=== PATIENT | male | born 1960 | race Caucasian/White ===

== ENCOUNTER 2019-02-04 06:59 | Day surgery (SDC) | payer OTHER ==
[~2019-02-04] VITALS: Ht 180.3 cm; Wt 113.4 kg
[~2019-02-04 06:59] MED LIST: ATOR1TAB19 PO; CHAN1PAK13 PO; NS 1,000 ML IV ONE
[2019-02-04] MEDS ORDERED: LIDOCAINE 2% INJ 100 MG/5 ML SDV (FOR ANES.) As Ordered ONE (07:08)
[2019-02-04] MEDS ORDERED: PROPOFOL 200 MG/20 ML VIAL As Ordered ONE ×3 (07:08→08:59)
--- NOTE | 2019-02-04 09:10 | ROOR ---
Patient Name: Arben Nicole Procedure Date: 02/04/2019 8:12 AM Date of : 1960 Age: 58 Room: [facility] Gender: Male Note Status: Finalized Procedure: Total Colonoscopy to Cecum + Cold + Hot Snare Polypectomy + Hemoclips Indications: Screening for colorectal malignant neoplasm Providers: Hesham Merritt MD Referring MD: Indiana Garcia NP Requesting Provider: Medicines: Monitored Anesthesia Care Complications: No immediate complications. Procedure: Pre-Anesthesia Assessment: - The heart rate, respiratory rate, oxygen saturations, blood pressure, adequacy of pulmonary ventilation, and response to care were monitored throughout the procedure. The Colonoscope was introduced through the anus and advanced to the cecum, identified by appendiceal orifice and ileocecal valve. The colonoscopy was performed without difficulty. The patient tolerated the procedure well. The quality of the bowel preparation was excellent. Findings: The perianal and digital rectal examinations were normal. Non-bleeding internal hemorrhoids were found during retroflexion. The hemorrhoids were Grade I (internal hemorrhoids that do not prolapse). Scattered small-mouthed diverticula were found in the recto-sigmoid colon, sigmoid colon and descending colon. A medium polyp was found at 10 cm proximal to the anus. The polyp was semi-pedunculated. The polyp was removed with a hot snare. Resection and retrieval were complete. To prevent bleeding after the polypectomy, one hemostatic clip was successfully placed (MR conditional). There was no bleeding at the end of the procedure. A large polyp was found at 20 cm proximal to the anus. The polyp was semi-pedunculated. The polyp was removed with a hot snare. Resection and retrieval were complete. To prevent bleeding after the polypectomy, one hemostatic clip was successfully placed (MR conditional). There was no bleeding at the end of the procedure. Two sessile polyps were found at 30 cm proximal to the anus. The polyps were medium in size. These polyps were removed with a cold snare. Resection and retrieval were complete. To prevent bleeding after the polypectomy, one hemostatic clip was successfully placed (MR conditional). There was no bleeding at the end of the procedure. A small polyp was found at 50 cm proximal to the anus. The polyp was sessile. The polyp was removed with a cold snare. Resection and retrieval were complete. Two sessile polyps were found at 50 cm proximal to the anus. The polyps were medium in size. These polyps were removed with a hot snare. Resection and retrieval were complete. To prevent bleeding after the polypectomy, one hemostatic clip was successfully placed (MR conditional). There was no bleeding at the end of the procedure. A medium polyp was found in the transverse colon. The polyp was sessile. The polyp was removed with a cold snare. Resection and retrieval were complete. Two semi-pedunculated polyps were found in the hepatic flexure. The polyps were medium in size. These polyps were removed with a hot snare. Resection and retrieval were complete. To prevent bleeding after the polypectomy, one hemostatic clip was successfully placed (MR conditional). There was no bleeding at the end of the procedure. A small polyp was found in the ascending colon. The polyp was sessile. The polyp was removed with a hot snare. Resection and retrieval were complete. To prevent bleeding after the polypectomy, one hemostatic clip was successfully placed (MR conditional). There was no bleeding at the end of the procedure. The exam was otherwise without abnormality on direct and retroflexion views. Impression: - Non-bleeding internal hemorrhoids. - Diverticulosis in the recto-sigmoid colon, in the sigmoid colon and in the descending colon. - One medium polyp at 10 cm proximal to the anus, removed with a hot snare. Resected and retrieved. Clip (MR conditional) was placed. - One large polyp at 20 cm proximal to the anus, removed with a hot snare. Resected and retrieved. Clip (MR conditional) was placed. - Two medium polyps at 30 cm proximal to the anus, removed with a cold snare. Resected and retrieved. Clip (MR conditional) was placed. - One small polyp at 50 cm proximal to the anus, removed with a cold snare. Resected and retrieved. - Two medium polyps at 50 cm proximal to the anus, removed with a hot snare. Resected and retrieved. Clip (MR conditional) was placed. - One medium polyp in the transverse colon, removed with a cold snare. Resected and retrieved. - Two medium polyps at the hepatic flexure, removed with a hot snare. Resected and retrieved. Clip (MR conditional) was placed. - One small polyp in the ascending colon, removed with a hot snare. Resected and retrieved. Clip (MR conditional) was placed. - The examination was otherwise normal on direct and retroflexion views. Recommendation: - Patient has a contact number available for emergencies. The signs and symptoms of potential delayed complications were discussed with the patient. Return to normal activities tomorrow. Written discharge instructions were provided to the patient. - High fiber diet. - Discharge patient to home. - Continue present medications. - Await pathology results. - Telephone GI clinic for pathology results in 1 week. - Repeat colonoscopy for surveillance based on pathology results. - Return to referring physician. - The findings and recommendations were discussed with the patient's family. Hesham Merritt MD Hesham Merritt MD 02/04/2019 9:10:19 AM Electronically signed by Hesham Merritt MD Number of Addenda: 0 Note Initiated On: 02/04/2019 8:12 AM Estimated Blood Loss: Estimated blood loss: none.
[2019-02-04 09:25] VITALS: BP 150/96
== END 2019-02-04 09:34 | disposition home or self-care (01) ==
LOC: M OPP 06:59
PROVIDERS: ATTEND Internal Medicine Gastroenterology
DX: D12.2 Benign neoplasm of ascending colon (principal); D12.3 Benign neoplasm of transverse colon; D12.6 Benign neoplasm of colon, unspecified; K64.0 First degree hemorrhoids; K57.30 Diverticulosis of large intestine without perforation or abscess without bleeding; Z12.11 Encounter for screening for malignant neoplasm of colon

== ENCOUNTER 2019-05-20 09:05 | Day surgery (SDC) | payer OTHER ==
[~2019-05-20] VITALS: Ht 172.7 cm; Wt 110.2 kg
[~2019-05-20 09:05] MED LIST changes: +LIDOCAINE 2% INJ 100 MG/5 ML SDV (FOR ANES.) As Ordered ONE; +PROPOFOL 200 MG/20 ML VIAL As Ordered ONE
--- NOTE | 2019-05-20 10:42 | ROOR ---
Patient Name: Arben Nicole Procedure Date: 05/20/2019 10:14 AM Date of : 1960 Age: 58 Room: [facility] Gender: Male Note Status: Finalized Procedure: Total Colonoscopy to Cecum + Cold Snare Polypectomy + Hemoclips Indications: High risk colon cancer surveillance: Personal history of colonic polyps, Incidental - Follow-up for history of colon polyps of uncertain behavior Providers: Hesham Merritt MD Referring MD: LILLIAM Reynolds Requesting Provider: Medicines: Monitored Anesthesia Care Complications: No immediate complications. Procedure: Pre-Anesthesia Assessment: - The heart rate, respiratory rate, oxygen saturations, blood pressure, adequacy of pulmonary ventilation, and response to care were monitored throughout the procedure. The Colonoscope was introduced through the anus and advanced to the cecum, identified by appendiceal orifice and ileocecal valve. The colonoscopy was performed without difficulty. The patient tolerated the procedure well. The quality of the bowel preparation was excellent. Findings: The perianal and digital rectal examinations were normal. Non-bleeding internal hemorrhoids were found during retroflexion. The hemorrhoids were small and Grade I (internal hemorrhoids that do not prolapse). Scattered small-mouthed diverticula were found in the recto-sigmoid colon, sigmoid colon and descending colon. A medium polyp was found in the splenic flexure. The polyp was sessile. The polyp was removed with a cold snare. Resection and retrieval were complete. To prevent bleeding after the polypectomy, two hemostatic clips were successfully placed (MR conditional). There was no bleeding at the end of the procedure. A small polyp was found in the transverse colon. The polyp was sessile. The polyp was removed with a jumbo cold forceps. Resection and retrieval were complete. The exam was otherwise without abnormality on direct and retroflexion views. Impression: - Non-bleeding internal hemorrhoids. - Diverticulosis in the recto-sigmoid colon, in the sigmoid colon and in the descending colon. - One medium polyp at the splenic flexure, removed with a cold snare. Resected and retrieved. Clips (MR conditional) were placed. - One small polyp in the transverse colon, removed with a jumbo cold forceps. Resected and retrieved. - The examination was otherwise normal on direct and retroflexion views. - The exam was otherwise normal to the cecum. Recommendation: - Patient has a contact number available for emergencies. The signs and symptoms of potential delayed complications were discussed with the patient. Return to normal activities tomorrow. Written discharge instructions were provided to the patient. - High fiber diet. - Discharge patient to home. - Continue present medications. - Await pathology results. - Telephone GI clinic for pathology results in 1 week. - Repeat colonoscopy in 3 years for surveillance based on pathology results. - Return to referring physician. - The findings and recommendations were discussed with the patient's family. Hesham Merritt MD Hesham Merritt MD 05/20/2019 10:42:40 AM Electronically signed by Hesham Merritt MD Number of Addenda: 0 Note Initiated On: 05/20/2019 10:14 AM Estimated Blood Loss: Estimated blood loss: none.
[2019-05-20 11:00] VITALS: BP 135/87
== END 2019-05-20 11:11 | disposition home or self-care (01) ==
LOC: M OPP 09:05
PROVIDERS: ATTEND Internal Medicine Gastroenterology
DX: Z52.4 Kidney donor (principal); D37.4 Neoplasm of uncertain behavior of colon; Z86.010 Personal history of colon polyps; K64.0 First degree hemorrhoids; K57.30 Diverticulosis of large intestine without perforation or abscess without bleeding; D12.3 Benign neoplasm of transverse colon; E78.5 Hyperlipidemia, unspecified; M19.90 Unspecified osteoarthritis, unspecified site; Z85.46 Personal history of malignant neoplasm of prostate; F17.210 Nicotine dependence, cigarettes, uncomplicated; Z79.899 Other long term (current) drug therapy

== ENCOUNTER 2020-01-06 15:38 | Emergency (ER) | payer OTHER ==
[~2020-01-06] VITALS: Ht 180.3 cm; Wt 112.5 kg
[~2020-01-06 15:38] MED LIST changes: -LIDOCAINE 2% INJ 100 MG/5 ML SDV (FOR ANES.) As Ordered ONE; -NS 1,000 ML IV ONE; -PROPOFOL 200 MG/20 ML VIAL As Ordered ONE
--- NOTE | 2020-01-06 17:20 | REPVR ---
PROCEDURE INFORMATION: Exam: US Duplex Right Lower Extremity Veins, Limited Exam date and time: 01/06/2020 5:02 PM Age: 59 years old Clinical indication: Swelling (edema) of limb; Lower extremity, right; Additional info: Thigh pain/swelling TECHNIQUE: Imaging protocol: Real-time Duplex ultrasound of the Right Lower Extremity with 2-D martin scale, color Doppler flow and spectral waveform analysis with image documentation. Limited exam was focused on the right lower extremity veins. COMPARISON: No relevant prior studies available. FINDINGS: Right deep veins: Unremarkable. The common femoral, femoral, proximal profunda femoral and popliteal veins are patent without thrombus. Normal Doppler waveforms. Normal compressibility and/or augmentation response. Right superficial veins: Unremarkable. Saphenofemoral junction is patent without thrombus. Soft tissues: Unremarkable. IMPRESSION: No evidence of deep vein thrombosis. Electronically signed by: Glenna Zaidi On 01/06/2020 17:19:55 PM
--- NOTE | 2020-01-06 17:27 | REP ---
PELVIS, RIGHT HIP: THREE VIEWS. HISTORY: Hip and thigh pain and swelling. FINDINGS: The bony pelvic ring is intact. No pelvic or sacral fracture is seen. There are surgical clips in the left lower quadrant of the abdomen. There are mild degenerative changes at the symphysis pubis. SI joints appear intact. No proximal femur fracture seen on either side. AP and frog-leg views of the right hip demonstrate rounded femoral head and intact hip joint space. Periarticular soft tissues are unremarkable. IMPRESSION: Negative radiographs of the pelvis and right hip. No acute bony abnormality. Electronically Signed by Davi Reese MD 01/07/2020 08:31 A
[2020-01-06 17:55] VITALS: BP 145/96
== END 2020-01-06 17:56 | disposition home or self-care (01) ==
LOC: M ED 15:38
DX: M25.551 Pain in right hip (principal); E78.5 Hyperlipidemia, unspecified; Z85.46 Personal history of malignant neoplasm of prostate; F17.210 Nicotine dependence, cigarettes, uncomplicated; Z79.899 Other long term (current) drug therapy

== ENCOUNTER → 2020-02-22 | Outpatient (CLI) | payer OTHER ==
--- NOTE | 2020-02-22 09:10 | REP ---
REASON FOR EXAM: Pain above the knee. PRIORS: None. There is mild to moderate bilateral asymmetric hip joint space narrowing. There is no abnormal focal chondral and subchondral signal seen arising from the femoral or acetabular component of either hip. There is no joint effusion. There is T2 hypersignal seen within the obturator externus muscle on the right with mild T2 hypersignal seen within the quadratus femoris muscle on the right. The ischiofemoral interval is borderline to slightly narrowed. There is no abnormal signal seen in the imaged osseous structures. There is slight T2 hypersignal seen in soft tissues surrounding the origin of the hamstring tendons on the right. Very subtle T2 hypersignal is seen in the anterior labrum, which is nonlinear. No abnormal signal is seen on the trochanteric tendon bursal region of either hip. There is slight patchy T2 hypersignal seen in the inferior sacroiliac joint bilaterally without abnormal fluid. There is no evidence of a mass or mass effect. IMPRESSION: 1. There is evidence of right hip muscular strain with edema as described above. 2. Evidence of mild chronic labral changes as described above. 3. Possible mild hamstring tendinitis. 4. Chronic sacroiliac joint changes with very slight edema on both sides inferiorly as described above. 5. Other findings as described above. Electronically Signed by Campos Esquivel DO 02/22/2020 01:22 P
== END ==
LOC: M RAD 06:30
PROVIDERS: ATTEND Surgery
DX: S76.011A Strain of muscle, fascia and tendon of right hip, initial encounter (principal); R60.0 Localized edema; X58.XXXA Exposure to other specified factors, initial encounter; Y92.89 Other specified places as the place of occurrence of the external cause

== ENCOUNTER → 2020-03-31 | Outpatient (REF) | payer OTHER ==
[2020-05-09 08:44] LABS: ASPERGILLUS FUMIGATUS AB SEE SEPARATE REPORT
[2020-05-23 11:22] LABS: ANCA-ATYPICAL SEE SEPARATE REPORT; ANTI DS-DNA AB SEE SEPARATE REPORT; ANTINUCLEAR ANTIBODIES DIRECT See Separate Report; CRYPTOCOCCUS ANTIGEN SER SEE SEPARATE REPORT; CRYPTOCOCCUS ANTIGEN SER TITER SEE SEPARATE REPORT; CYTOPLASMIC NEUTROP AB ANCA-C SEE SEPARATE REPORT; HISTOPLASMOSIS ANTIBODY SEE SEPARATE REPORT; PERINUCLEAR AB ANCA-P SEE SEPARATE REPORT; RNP ANTIBODY SEE SEPARATE REPORT UNITS; SMITHS ANTIBODY SEE SEPARATE REPORT UNITS; SSA SJOGRENS A SEE SEPARATE REPORT; SSB SJOGRENS B SEE SEPARATE REPORT
[2020-05-23 11:23] LABS: ANGIOTENSIN 1 CONVERTING ENZYM See Separate Report U/L; ASPERGILLUS FLAVUS ABY SEE SEPARATE REPORT; ASPERGILLUS FUMIGATUS ABY SEE SEPARATE REPORT; ASPERGILLUS NIGER ABY SEE SEPARATE REPORT; BLASTOMYCES ANTIBODY LEVEL SEE SEPARATE REPORT
== END ==
LOC: M LAB REF 09:07
PROVIDERS: ATTEND Internal Medicine Pulmonary Disease
DX: R91.8 Other nonspecific abnormal finding of lung field (principal)

== ENCOUNTER → 2022-06-14 | Outpatient (CLI) | payer OTHER | LOC: M RAD 07:09 | PROVIDERS: ATTEND Internal Medicine Pulmonary Disease | DX: R91.8 Other nonspecific abnormal finding of lung field (principal) ==

== ENCOUNTER 2024-06-08 06:40 | Day surgery (SDC) | payer OTHER ==
[~2024-06-08] VITALS: Ht 180.3 cm; Wt 105.6 kg
[~2024-06-08 06:40] MED LIST changes: +NS 250 ML IV ONE
[2024-06-08] MEDS ORDERED: propofoL 200 MG/20 ML VIAL As Ordered ONE (07:05)
[2024-06-08] MEDS ORDERED: LIDOCAINE 2% 100MG/5ML SDV (FOR ANES.) As Ordered ONE (07:05)
[2024-06-08 08:10] VITALS: TEMP 97.5
[2024-06-08 08:23] VITALS: BP 162/94; O2SAT 96
== END 2024-06-08 08:34 | disposition home or self-care (01) ==
LOC: M OPP 06:40
PROVIDERS: ATTEND Internal Medicine Gastroenterology
DX: Z12.11 Encounter for screening for malignant neoplasm of colon (principal); D12.0 Benign neoplasm of cecum; K63.89 Other specified diseases of intestine; K64.0 First degree hemorrhoids; Z86.0100 Personal history of colon polyps, unspecified; F17.210 Nicotine dependence, cigarettes, uncomplicated; Z85.46 Personal history of malignant neoplasm of prostate; Z90.89 Acquired absence of other organs; E78.00 Pure hypercholesterolemia, unspecified

== ENCOUNTER → 2024-11-04 | Outpatient (CLI) | payer OTHER ==
[~2024-11-04] MED LIST changes: -NS 250 ML IV ONE
== END ==
LOC: M PLAIMG 08:32
PROVIDERS: ATTEND Internal Medicine Critical Care Medicine
DX: J84.9 Interstitial pulmonary disease, unspecified (principal)

== ENCOUNTER 2025-05-26 06:07 | Day surgery (SDC) | payer OTHER ==
[~2025-05-26] VITALS: Ht 180.3 cm; Wt 109.4 kg
[2025-05-26] MEDS: LR 1,000 ML IV SCH (06:35)
[2025-05-26] MEDS ORDERED: LIDOCAINE 2% 100 MG/5 ML SDV (FOR ANES.) As Ordered ONE (06:46)
[2025-05-26] MEDS ORDERED: dexAMETHasone 4 MG/ML 1 ML VIAL As Ordered ONE (06:46)
[2025-05-26] MEDS ORDERED: KETOROLAC 30 MG/ML 1 ML VIAL As Ordered ONE (06:46)
[2025-05-26] MEDS ORDERED: ONDANSETRON 4MG 2ML VIAL As Ordered ONE (06:46)
[2025-05-26] MEDS ORDERED: MIDAZOLAM INJ 2 MG/2 ML VIAL As Ordered ONE (06:47)
[2025-05-26] MEDS: LIDOCAINE 1% SDV 30 ML VIAL As Ordered ONE (07:40)
[2025-05-26] MEDS: ceFAZolin SOD 2 GM IV ONCE IV ONE (07:40)
[2025-05-26] MEDS ORDERED: ACETAMINOPHEN 1000MG/100ML IV BAG As Ordered ONE (07:47)
[2025-05-26] MEDS ORDERED: HYDROMORPHONE HCL 0.5 MG/0.5 ML SYRINGE IV PRN (09:45)
[2025-05-26] MEDS: ONDANSETRON 4MG 2ML VIAL IV PRN (10:13)
[2025-05-26 10:45] VITALS: BP 138/86; TEMP 97.6; O2SAT 94
== END 2025-05-26 10:56 | disposition home or self-care (01) ==
LOC: M SDC 06:07
PROVIDERS: ATTEND Podiatrist Foot & Ankle Surgery
DX: M20.41 Other hammer toe(s) (acquired), right foot (principal); M21.611 Bunion of right foot; F17.210 Nicotine dependence, cigarettes, uncomplicated; Z85.46 Personal history of malignant neoplasm of prostate
CPT/HCPCS: 28285; 28297; 28308; 28310; 88300; C1713; J0131; J0665; J0688; J1100; J1885; J2250; J2405; J3010